=== PATIENT | female | born 1945 | race Hispanic/Latino ===

== ENCOUNTER → 2018-01-14 | Outpatient (CLI) | payer MEDICARE, SELFPAY ==
[~2018-01-14] MED LIST: BAYER ASPIRIN PO; CETI10TA57 PO; HYDR25TA PO; METO-391 PO; MONT10TA24 PO; NAPR-1023 PO; PANT40TA25 PO; ROSU20TA PO; SULF1TAB42 PO; VITAMIN D2 PO
== END | disposition home or self-care (01) ==
LOC: RAH 13:55
PROVIDERS: ATTEND Internal Medicine Cardiovascular Disease
DX: Z13.6 Encounter for screening for cardiovascular disorders (principal)
CPT/HCPCS: 75571

== ENCOUNTER → 2018-01-17 | Outpatient (CLI) | payer MEDICARE | END | disposition home or self-care (01) | LOC: SHCH 10:40 | PROVIDERS: ATTEND Internal Medicine Cardiovascular Disease | DX: I11.0 Hypertensive heart disease with heart failure (principal); I50.9 Heart failure, unspecified; K21.9 Gastro-esophageal reflux disease without esophagitis; E78.5 Hyperlipidemia, unspecified; Z95.0 Presence of cardiac pacemaker | CPT/HCPCS: 93306 ==

== ENCOUNTER 2018-02-16 05:35 | Day surgery (SDC) | payer MEDICARE ==
[2018-02-14 10:42] VITALS: BP 128/69
[2018-02-14 10:56] LABS: BASOPHILS % (AUTO) 0.6 % (0.0-5.0); EOSINOPHILS % (AUTO) 0.9 % (0.0-8.0); HEMATOCRIT 43.4 % (36-48); LYMPHOCYTES % (AUTO) 31.5 % (21.0-51.0); MEAN CORPUSCULAR HEMOGLOBIN 29.5 pg (27.0-33.0); MEAN CORPUSCULAR HGB CONC 33.6 g/dL (32.0-36.0); MEAN CORPUSCULAR VOLUME 87.7 fL (79-99); MONOCYTES % (AUTO) 6.7 % (3.0-13.0); NEUTROPHILS % (AUTO) 60.3 % (40.0-77.0); NUCLEATED RED BLOOD CELLS 0.1 % (0.0-0.19); PLATELET COUNT (AUTO) 245 K/uL (130-400); RED BLOOD CELL COUNT(AUTO) 4.95 MIL/uL (4.00-5.50); RED CELL DISTRIBUTION WIDTH 14.1 % (11.0-15.5); WHITE BLOOD COUNT (AUTO) 8.1 K/uL (4.8-10.8)
[2018-02-14 11:06] LABS: BILIRUBIN,URINE Negative (NEGATIVE); COLOR,URINE Yellow (YELLOW); GLUCOSE, URINE (UA) Negative (NEGATIVE); KETONES,URINE Negative (NEGATIVE); LEUKOCYTE ESTERASE ,URINE Large (NEGATIVE); NITRATE,URINE Negative (NEGATIVE); OCCULT BLOOD,URINE Negative (NEGATIVE); PROTEIN,URINE Negative (NEGATIVE); UROBILINOGEN,URINE 0.2 mg/dL (0.2-1.0)
[2018-02-14 11:09] LABS: APPEARANCE,URINE CLEAR (CLEAR)
[2018-02-14 11:12] LABS: CREATININE 0.7 mg/dL (0.5-1.5); POTASSIUM 3.7 mmol/L (3.5-5.1)
[2018-02-14 11:13] LABS: BACTERIA,URINE Rare /HPF (None Seen); RBC,URINE 0-1 /HPF (0-1); SQUAMOUS EPITHELIAL CELL,UR Few /HPF (0-2)
[2018-02-14 11:32] LABS: INR 0.95 (0.85-1.15); PARTIAL THROMBOPLASTIN TIME 24.8 SEC (26.3-35.5)
[2018-02-16] VITALS (9 sets, daily range): BP systolic 109–136; BP diastolic 49–78
[~2018-02-16] VITALS: Ht 160 cm; Wt 91.6 kg
[~2018-02-16 05:35] MED LIST changes: +ACETAMINOPHEN 325 MG TAB PO PRN; -CETI10TA57 PO; +SODIUM CHLORIDE 0.9% 500ML 500 ML IV SCH; -SULF1TAB42 PO
[2018-02-16] MEDS ORDERED: SODIUM CHLORIDE 0.9% 1000ML 1,000 ML IV ONE (06:15)
[2018-02-16] MEDS ORDERED: SULF1TAB42 PO (07:03)
[2018-02-16] MEDS ORDERED: IOPAMIDOL-370 100 ML VIAL IV ONE ×2 (09:59)
[2018-02-16] MEDS ORDERED: ISOVUE-370 50ML VIAL IV ONE (09:59)
[2018-02-16] MEDS ORDERED: HEPARIN SODIUM 1000UNIT/ML 10ML VIAL ONE (09:59)
[2018-02-16] MEDS ORDERED: MEPERIDINE-PF 25 MG/ML SYG ONE ×2 (10:00→10:19)
[2018-02-16] MEDS ORDERED: NITROGLYCERIN 5 MG/ML 10 ML VIAL IV ONE (10:00)
[2018-02-16] MEDS ORDERED: MIDAZOLAM HCL 1 MG/ML 2ML VIAL ONE ×2 (10:00→10:19)
[2018-02-16] MEDS ORDERED: LIDOCAINE HCL-MPF 2% 5ML VIAL ONE (10:01)
[2018-02-16] MEDS ORDERED: SODIUM BICARB 50MEQ 50ML VIAL ONE (10:01)
[2018-02-16] MEDS ORDERED: SODIUM CHLORIDE 0.9% 1000ML 1,000 ML IV SCH (10:46)
[2018-02-16] MEDS ORDERED: ACETAMINOPHEN-CODEINE 300/30MG TAB PO PRN ×2 (11:00)
== END 2018-02-16 14:55 | disposition home or self-care (01) ==
LOC: DAH 05:35
PROVIDERS: ATTEND Internal Medicine Cardiovascular Disease
DX: R07.89 Other chest pain (principal); I10 Essential (primary) hypertension; E78.4 Other hyperlipidemia; K21.9 Gastro-esophageal reflux disease without esophagitis; Z95.0 Presence of cardiac pacemaker; Z90.49 Acquired absence of other specified parts of digestive tract; Z90.710 Acquired absence of both cervix and uterus; Z98.890 Other specified postprocedural states
CPT/HCPCS: 36415; 71045; 80048; 81001; 85025; 85610; 85730; 93005; 93458; A4606; C1760; C1894; J1644; J2175 ×2; J2250 ×2; J3490 ×3; J7030; Q9967 ×3; 99152; 99153

== ENCOUNTER 2018-12-06 14:32 | Emergency (ER) | payer MEDICARE ==
[~2018-12-06 14:32] MED LIST changes: -ACETAMINOPHEN 325 MG TAB PO PRN; -SODIUM CHLORIDE 0.9% 500ML 500 ML IV SCH; +SULF1TAB42 PO
[2018-12-06 15:11] LABS: BASOPHILS % (AUTO) 0.8 % (0.0-5.0); EOSINOPHILS % (AUTO) 0.6 % (0.0-8.0); HEMATOCRIT 40.1 % (36-48); LYMPHOCYTES % (AUTO) 24.6 % (21.0-51.0); MEAN CORPUSCULAR HEMOGLOBIN 29.2 pg (27.0-33.0); MEAN CORPUSCULAR HGB CONC 32.9 g/dL (32.0-36.0); MEAN CORPUSCULAR VOLUME 88.8 fL (79-99); MONOCYTES % (AUTO) 7.4 % (3.0-13.0); NEUTROPHILS % (AUTO) 66.6 % (40.0-77.0); NUCLEATED RED BLOOD CELLS 0.1 % (0.0-0.19); PLATELET COUNT (AUTO) 232 K/uL (130-400); RED BLOOD CELL COUNT(AUTO) 4.52 MIL/uL (4.00-5.50); RED CELL DISTRIBUTION WIDTH 14.3 % (11.0-15.5); WHITE BLOOD COUNT (AUTO) 10.3 K/uL (4.8-10.8)
[2018-12-06 15:30] LABS: CREATININE 0.7 mg/dL (0.5-1.5); POTASSIUM 3.3 mmol/L (3.5-5.1)
[2018-12-06 15:32] LABS: INR 0.96 (0.85-1.15); PARTIAL THROMBOPLASTIN TIME 23.5 SEC (26.3-35.5); PROTHROMBIN TIME 10.1 SEC (9.6-11.6)
[2018-12-06 15:35] LABS: ALBUMIN 3.5 g/dL (3.5-5.0); BILIRUBIN,TOTAL 0.7 mg/dL (0.2-1.0); TOTAL PROTEIN, SERUM 7.2 g/dL (6.0-8.3)
[2018-12-06] MEDS ORDERED: POTASSIUM BICARB/CIT AC 25 MEQ TABLET.EFF ONE (15:46)
[2018-12-06] MEDS ORDERED: OCTYL 2-CYANOACRYLATE 1 EACH TP ONE (15:50)
[2018-12-06] MEDS ORDERED: ACETAMINOPHEN EXTRA STRENGTH 500 MG TABLET ONE (16:03)
[2018-12-06 16:37] LABS: APPEARANCE,URINE Clear (CLEAR); BILIRUBIN,URINE Negative (NEGATIVE); COLOR,URINE Yellow (YELLOW); GLUCOSE, URINE (UA) Negative (NEGATIVE); KETONES,URINE Negative (NEGATIVE); LEUKOCYTE ESTERASE ,URINE Large (NEGATIVE); NITRATE,URINE Negative (NEGATIVE); OCCULT BLOOD,URINE Negative (NEGATIVE); PROTEIN,URINE Negative (NEGATIVE); UROBILINOGEN,URINE 0.2 mg/dL (0.2-1.0)
[2018-12-06 16:45] LABS: BACTERIA,URINE Few /HPF (None Seen); RBC,URINE None Seen /HPF (0-1)
== END 2018-12-06 17:13 | disposition home or self-care (01) ==
LOC: EDH 14:32
DX: S01.21XA Laceration without foreign body of nose, initial encounter (principal); S66.911A Strain of unspecified muscle, fascia and tendon at wrist and hand level, right hand, initial encounter; N39.0 Urinary tract infection, site not specified; R79.1 Abnormal coagulation profile; W18.09XA Striking against other object with subsequent fall, initial encounter; Y93.89 Activity, other specified; Y92.89 Other specified places as the place of occurrence of the external cause; Y99.8 Other external cause status
CPT/HCPCS: 12011; 36415; 70450; 70486; 71045; 72125; 80053; 81001; 82550; 84484; 85025; 85610; 85730; 93005

== ENCOUNTER 2019-02-04 21:57 | Observation (INO) | payer MEDICARE ==
[~2019-02-04] VITALS: Ht 160 cm; Wt 90.7 kg
[2019-02-04 23:37] LABS: BASOPHILS % (AUTO) 0.6 % (0.0-5.0); EOSINOPHILS % (AUTO) 0.8 % (0.0-8.0); HEMATOCRIT 41.2 % (36-48); LYMPHOCYTES % (AUTO) 32.9 % (21.0-51.0); MEAN CORPUSCULAR HEMOGLOBIN 29.8 pg (27.0-33.0); MEAN CORPUSCULAR HGB CONC 33.3 g/dL (32.0-36.0); MEAN CORPUSCULAR VOLUME 89.5 fL (79-99); MONOCYTES % (AUTO) 6.7 % (3.0-13.0); PLATELET COUNT (AUTO) 202 K/uL (130-400); RED BLOOD CELL COUNT(AUTO) 4.61 MIL/uL (4.00-5.50); RED CELL DISTRIBUTION WIDTH 14.3 % (11.0-15.5); WHITE BLOOD COUNT (AUTO) 11.3 K/uL (4.8-10.8)
[2019-02-04 23:47] LABS: CREATININE 0.6 mg/dL (0.5-1.5); POTASSIUM 4.3 mmol/L (3.5-5.1)
[2019-02-04 23:51] LABS: ALBUMIN 3.8 g/dL (3.5-5.0); BILIRUBIN,TOTAL 1.2 mg/dL (0.2-1.0); TOTAL PROTEIN, SERUM 6.9 g/dL (6.0-8.3)
[2019-02-04 23:55] LABS: INR 1.05 (0.85-1.15); PARTIAL THROMBOPLASTIN TIME 19.1 SEC (26.3-35.5)
[2019-02-05 00:08] LABS: B-TYPE NATRIURETIC PEPTIDE 30 pg/mL (0-100)
[2019-02-05 01:10] LABS: APPEARANCE,URINE Clear (CLEAR); BILIRUBIN,URINE Negative (NEGATIVE); COLOR,URINE Yellow (YELLOW); GLUCOSE, URINE (UA) Negative (NEGATIVE); KETONES,URINE Negative (NEGATIVE); LEUKOCYTE ESTERASE ,URINE Trace (NEGATIVE); NITRATE,URINE Negative (NEGATIVE); OCCULT BLOOD,URINE Negative (NEGATIVE); PROTEIN,URINE Negative (NEGATIVE); UROBILINOGEN,URINE 0.2 mg/dL (0.2-1.0)
[2019-02-05 01:29] LABS: BACTERIA,URINE Rare /HPF (None Seen); RBC,URINE 0-1 /HPF (0-1); SQUAMOUS EPITHELIAL CELL,UR 0-2 /HPF (0-2); WBC,URINE 0-1 /HPF (0-1)
[2019-02-05] MEDS ORDERED: LACTULOSE 20 GM/30 ML UDCUP ONE ×3 (01:52→21:03)
[2019-02-05] MEDS ORDERED: CEFTRIAXONE SODIUM 1 GM ONE (01:52)
[2019-02-05] MEDS ORDERED: MORPHINE SULFATE 2 MG/ML 1ML SYG IV PRN (02:30)
[2019-02-05] MEDS ORDERED: CEFTRIAXONE SODIUM 1 GM IV SCH (02:30)
[2019-02-05 05:51] LABS: CREATINE KINASE, TOTAL 18 U/L (21-232); MYOGLOBIN 26 ng/mL (10-92); TROPONIN I < 0.04 ng/mL (0.00-0.06)
[2019-02-05] MEDS ORDERED: ATORVASTATIN CALCIUM 20 MG TABLET PO SCH ×2 (09:00→21:00)
[2019-02-05] MEDS ORDERED: METOPROLOL TARTRATE 25 MG TAB PO SCH ×2 (09:00→11:15)
[2019-02-05] MEDS ORDERED: PANTOPRAZOLE SODIUM 40 MG TABLET.DR PO SCH (09:00)
[2019-02-05] MEDS ORDERED: LACTULOSE 20 GM/30 ML UDCUP PO SCH (09:00)
[2019-02-05] MEDS ORDERED: ENOXAPARIN SODIUM 40 MG/0.4 ML SYRINGE SQ SCH (09:00)
[2019-02-05] MEDS ORDERED: ASPIRIN 81MG TAB.CHEW PO SCH (09:00)
[2019-02-05] MEDS ORDERED: ENOXAPARIN SODIUM 40 MG/0.4 ML SYRINGE SQ ONE (09:14)
[2019-02-05] MEDS ORDERED: ATORVASTATIN CALCIUM 20 MG TABLET ONE ×2 (09:14→21:04)
[2019-02-05] MEDS ORDERED: ASPIRIN 81MG TAB.CHEW ONE (09:14)
[2019-02-05] MEDS ORDERED: PANTOPRAZOLE SODIUM 40 MG TABLET.DR PO ONE (09:15)
[2019-02-05] MEDS ORDERED: METOPROLOL TARTRATE 25 MG TAB ONE ×3 (09:15→21:04)
[2019-02-05] MEDS ORDERED: NAPROXEN 500 MG TABLET PO PRN (11:15)
[2019-02-05] MEDS ORDERED: MONTELUKAST SODIUM 10 MG TAB ONE (11:51)
[2019-02-05] MEDS ORDERED: HYDROCHLOROTHIAZIDE 25 MG TABLET ONE (11:52)
[2019-02-05 13:03] LABS: CREATINE KINASE, TOTAL 52 U/L (21-232); MYOGLOBIN 39 ng/mL (10-92); TROPONIN I < 0.04 ng/mL (0.00-0.06)
[2019-02-05] MEDS ORDERED: IOHEXOL-350 75 ML VIAL IV ONE (15:18)
[2019-02-05] MEDS ORDERED: TEMAZEPAM 15 MG CAPSULE PO ONE (20:45)
[2019-02-05] MEDS ORDERED: TEMAZEPAM 30 MG CAP ONE (21:05)
[2019-02-06 04:49] LABS: BASOPHILS % (AUTO) 1.2 % (0.0-5.0); EOSINOPHILS % (AUTO) 1.3 % (0.0-8.0); HEMATOCRIT 36.4 % (36-48); LYMPHOCYTES % (AUTO) 33.1 % (21.0-51.0); MEAN CORPUSCULAR HEMOGLOBIN 30.7 pg (27.0-33.0); MEAN CORPUSCULAR HGB CONC 34.4 g/dL (32.0-36.0); MEAN CORPUSCULAR VOLUME 89.4 fL (79-99); MONOCYTES % (AUTO) 8.1 % (3.0-13.0); NEUTROPHILS % (AUTO) 56.3 % (40.0-77.0); PLATELET COUNT (AUTO) 210 K/uL (130-400); RED BLOOD CELL COUNT(AUTO) 4.07 MIL/uL (4.00-5.50); RED CELL DISTRIBUTION WIDTH 14.4 % (11.0-15.5); WHITE BLOOD COUNT (AUTO) 8.3 K/uL (4.8-10.8)
[2019-02-06 05:14] LABS: CREATININE 0.6 mg/dL (0.5-1.5); POTASSIUM 3.3 mmol/L (3.5-5.1)
[2019-02-06 07:40] VITALS: BP 131/91
--- NOTE | 2019-02-06 08:30 | NUR ---
NOTE ADMITTED FROM ER AT THIS TIME. INITIAL COMPLAINS WHEN SHE ARRIVED THERE WERE CHEST PAIN. YESTERDAY ALL CARDIAC ENZYMES WERE NEGATIVE AND FAMILY REPORTED THAT SHE DEVELOPED SLURRED SPEECH ONE TIME WHEN SHE HAD CHEST PAIN. CT ANGIO HEAD WAS DONE ADN RESULTS WERE NORMAL. RESULTS WERE AVAILABLE ABOUT 1500 YESTERDAY BUT M.D. WAS NOT MADE AWARE. SHE IS HERE STABLE, NO DISTRESS OR SOB. NO CHEST PAIN NO SLURRED SPEECH. SHE IS VERY DEMANDING AND CURSING AT STAFF AND SMILING AT THE SAME TIME WANTS TO SHOWER, WANTS TO EAT AND WANTS TO LEAVE. NURSE PRACTICIONER OLIVIA WAS MADE AWARE OF ADMISSION IMMEDIATELY AND ABOUT THE PATIENT'S REQUEST TO LEAVE. SHE WILL BE DISCHARGED LATER THIS AM.
[2019-02-06] MEDS ORDERED: BAYER ASPIRIN 81 MG PO SCH (09:00)
[2019-02-06] MEDS ORDERED: HYDROCHLOROTHIAZIDE 25 MG TABLET PO SCH (09:00)
[2019-02-06] MEDS ORDERED: MONTELUKAST SODIUM 10 MG TAB PO SCH (09:00)
--- NOTE | 2019-02-06 09:00 | NUR ---
CM NOTES PT DC IN OBS STATS- SEEN IN THE [facility] AAOX3, AMBULATORY- NO CONCERNS VOICED TO PRIMARY NURSE BY PATIENT OR TO CM BY PRIMARY RN Addendum: 02/06/19 at 1258 by WILTON BENNETT RN CM Amended: Links added.
--- NOTE | 2019-02-06 10:30 | NUR ---
NOTE DISCHARGE ISNTRUCTIONS GIVEN AT THIS TIME. REFER TO DC SUMMARY FRO DETAILS. STABLE UPON DISCHARGE WITH VIA WHEELCHAIR.
[2019-02-12] MEDS ORDERED: VIT D2 1.25 MG PO SCH (09:00)
== END 2019-02-06 10:46 | disposition home or self-care (01) ==
LOC: EDH 21:57 → EDHIP 02-05 02:21 → 4BH 02-06 08:03
PROVIDERS: ADMIT Hospitalist; ATTEND Hospitalist
DX: R07.89 Other chest pain (principal); I11.0 Hypertensive heart disease with heart failure; I50.9 Heart failure, unspecified; E78.5 Hyperlipidemia, unspecified; E72.20 Disorder of urea cycle metabolism, unspecified; K21.9 Gastro-esophageal reflux disease without esophagitis; Z95.0 Presence of cardiac pacemaker; Z90.49 Acquired absence of other specified parts of digestive tract; Z82.0 Family history of epilepsy and other diseases of the nervous system; Z82.3 Family history of stroke; Z82.49 Family history of ischemic heart disease and other diseases of the circulatory system; Z82.5 Family history of asthma and other chronic lower respiratory diseases; Z83.3 Family history of diabetes mellitus; Z79.899 Other long term (current) drug therapy
CPT/HCPCS: 36415 ×3; 70450; 70496; 70498; 71045; 80048; 80053; 80061; 81001; 82140 ×2; 82150; 82550 ×3; 82948; 83690; 83874 ×2; 83880; 84484 ×4; 85025 ×2; 85610; 85730; 87088; 93005 ×3; 99291; G0378 ×32; J0696; J1650; Q9967

== ENCOUNTER → 2019-02-20 | Outpatient (CLI) | payer MEDICARE ==
[~2019-02-20] MED LIST changes: -BAYER ASPIRIN PO; -NAPR-1023 PO; -SULF1TAB42 PO
== END | disposition home or self-care (01) ==
LOC: RAH 02-15 10:34
PROVIDERS: ATTEND Nurse Practitioner Family
DX: Z12.31 Encounter for screening mammogram for malignant neoplasm of breast (principal)
CPT/HCPCS: 77067

== ENCOUNTER → 2019-05-31 | Outpatient (CLI) | payer MEDICARE ==
[~2019-05-31] MED LIST changes: -ROSU20TA PO; +ROSU20TA23 PO
== END | disposition home or self-care (01) ==
LOC: RAH 08:12
PROVIDERS: ATTEND Nurse Practitioner Family
DX: R10.9 Unspecified abdominal pain (principal); Z90.49 Acquired absence of other specified parts of digestive tract
CPT/HCPCS: 76700

== ENCOUNTER 2019-09-07 09:52 | Emergency (ER) | payer MEDICARE ==
[2019-09-07 10:10] LABS: BASOPHILS % (AUTO) 0.9 % (0.0-5.0); HEMATOCRIT 44.3 % (36-48); LYMPHOCYTES % (AUTO) 29.5 % (21.0-51.0); MEAN CORPUSCULAR HEMOGLOBIN 30.5 pg (27.0-33.0); MEAN CORPUSCULAR HGB CONC 34.4 g/dL (32.0-36.0); MEAN CORPUSCULAR VOLUME 88.7 fL (79-99); MONOCYTES % (AUTO) 7.9 % (3.0-13.0); NEUTROPHILS % (AUTO) 59.7 % (40.0-77.0); PLATELET COUNT (AUTO) 221 K/uL (130-400); RED BLOOD CELL COUNT(AUTO) 4.99 MIL/uL (4.00-5.50); RED CELL DISTRIBUTION WIDTH 13.6 % (11.0-15.5); WHITE BLOOD COUNT (AUTO) 8.1 K/uL (4.8-10.8)
[2019-09-07 10:21] LABS: CREATININE 0.6 mg/dL (0.5-1.5); POTASSIUM 3.5 mmol/L (3.5-5.1)
[2019-09-07 10:23] LABS: INR 0.98 (0.85-1.15); PARTIAL THROMBOPLASTIN TIME 23.8 SEC (26.3-35.5); PROTHROMBIN TIME 10.3 SEC (9.6-11.6)
[2019-09-07 10:25] LABS: BILIRUBIN,TOTAL 1.6 mg/dL (0.2-1.0); TOTAL PROTEIN, SERUM 7.7 g/dL (6.0-8.3)
[2019-09-07 10:40] LABS: B-TYPE NATRIURETIC PEPTIDE 63 pg/mL (0-100)
[2019-09-07] MEDS ORDERED: ASPIRIN 81MG TAB.CHEW ONE (11:27)
== END 2019-09-07 15:53 | disposition home or self-care (01) ==
LOC: EDH 09:52
DX: R07.89 Other chest pain (principal); R06.00 Dyspnea, unspecified; I10 Essential (primary) hypertension; Z96.89 Presence of other specified functional implants
CPT/HCPCS: 36415; 71045; 80053; 82140; 82550; 83690; 83880; 84484; 85025; 85610; 85730; 93005

== ENCOUNTER → 2020-01-18 | Outpatient (CLI) | payer MEDICARE ==
[~2020-01-18] MED LIST changes: -MONT10TA24 PO; +MONT10TA26 PO
[2020-01-18 10:03] LABS: BASOPHILS % (AUTO) 0.3 % (0.0-5.0); EOSINOPHILS % (AUTO) 0.8 % (0.0-8.0); HEMATOCRIT 42.8 % (36-48); LYMPHOCYTES % (AUTO) 20.6 % (21.0-51.0); MEAN CORPUSCULAR HEMOGLOBIN 28.8 pg (27.0-33.0); MEAN CORPUSCULAR HGB CONC 32.2 g/dL (32.0-36.0); MEAN CORPUSCULAR VOLUME 89.2 fL (79-99); NEUTROPHILS % (AUTO) 71.8 % (40.0-77.0); PLATELET COUNT (AUTO) 237 K/uL (130-400); WHITE BLOOD COUNT (AUTO) 10.7 K/uL (4.8-10.8)
[2020-01-18 10:10] LABS: HEMOGLOBIN A1C 5.7 % (4.0-6.0)
[2020-01-18 10:25] LABS: ALBUMIN 3.8 g/dL (3.5-5.0); BILIRUBIN,TOTAL 1.6 mg/dL (0.2-1.0); CREATININE 0.7 mg/dL (0.5-1.5); POTASSIUM 3.1 mmol/L (3.5-5.1); T4 (THYROXINE) 8.3 ug/dL (4.7-13.3); THYROID STIMULATING HORMONE 1.77 uIU/mL (0.36-3.74)
== END | disposition home or self-care (01) ==
LOC: LAB 09:07
PROVIDERS: ATTEND Internal Medicine Cardiovascular Disease
DX: R94.31 Abnormal electrocardiogram [ECG] [EKG] (principal); E78.5 Hyperlipidemia, unspecified
CPT/HCPCS: 36415; 80053; 83036; 84436; 84443; 84479; 85025

== ENCOUNTER → 2020-01-22 | Outpatient (CLI) | payer MEDICARE | END | disposition home or self-care (01) | LOC: RAH 08:12 | PROVIDERS: ATTEND Internal Medicine Cardiovascular Disease | DX: I10 Essential (primary) hypertension (principal); Z95.0 Presence of cardiac pacemaker | CPT/HCPCS: 93306 ==

== ENCOUNTER 2020-05-07 08:08 | Observation (INO) | payer OTHER, MEDICARE ==
[2020-05-06 12:12] LABS: BASOPHILS % (AUTO) 0.3 % (0.0-5.0); EOSINOPHILS % (AUTO) 0.8 % (0.0-8.0); HEMATOCRIT 42.2 % (36-48); MEAN CORPUSCULAR HGB CONC 33.2 g/dL (32.0-36.0); MEAN CORPUSCULAR VOLUME 90.4 fL (79-99); MONOCYTES % (AUTO) 6.6 % (3.0-13.0); NEUTROPHILS % (AUTO) 61.1 % (40.0-77.0); PLATELET COUNT (AUTO) 242 K/uL (130-400); RED BLOOD CELL COUNT(AUTO) 4.67 MIL/uL (4.00-5.50); RED CELL DISTRIBUTION WIDTH 13.1 % (11.0-15.5); WHITE BLOOD COUNT (AUTO) 9.4 K/uL (4.8-10.8)
[2020-05-06 12:23] LABS: CREATININE 0.6 mg/dL (0.5-1.5); POTASSIUM 3.9 mmol/L (3.5-5.1)
[2020-05-06 12:26] LABS: INR 0.99 (0.85-1.15); PARTIAL THROMBOPLASTIN TIME 25.7 SEC (26.3-35.5); PROTHROMBIN TIME 10.7 SEC (9.6-11.6)
[2020-05-06 14:02] VITALS: BP 135/68
[~2020-05-07] VITALS: Ht 160 cm; Wt 83.9 kg
[2020-05-07] VITALS (7 sets, daily range): BP systolic 108–132; BP diastolic 67–80
[~2020-05-07 08:08] MED LIST changes: +APIX5TAB PO; +LISI2.5T2 PO; -PANT40TA25 PO; +PANT40TA54 PO
[2020-05-07] MEDS ORDERED: LORA-705 PO (09:49)
[2020-05-07] MEDS ORDERED: OLOP2.5D12 OP (09:51)
[2020-05-07] MEDS ORDERED: SODIUM CHLORIDE 0.9% 1000ML 1,000 ML IV ONE (10:34)
[2020-05-07] MEDS ORDERED: ACETAMINOPHEN EXTRA STRENGTH 500 MG TABLET ONE (12:30)
[2020-05-07] MEDS ORDERED: ACETAMINOPHEN 325 MG TAB PO ONE (13:30)
[2020-05-07] MEDS ORDERED: IODIXANOL 320 MG/ML 100 ML VIAL ONE (14:00)
[2020-05-07] MEDS ORDERED: MEPERIDINE-PF 25 MG/ML SYG ONE ×5 (14:00→16:31)
[2020-05-07] MEDS ORDERED: LIDOCAINE HCL 1% MDV 50ML VIAL ONE (14:00)
[2020-05-07] MEDS ORDERED: MIDAZOLAM HCL 1 MG/ML 2ML VIAL ONE ×5 (14:00→16:30)
[2020-05-07] MEDS ORDERED: CEFAZOLIN SODIUM 1 GM VIAL ONE (14:00)
[2020-05-07] MEDS ORDERED: BUPIVACAINE/PF 0.25% 30ML VIAL IJ ONE (14:00)
[2020-05-07] MEDS ORDERED: ACETAMINOPHEN-CODEINE 300/30MG TAB PO PRN (18:00)
--- NOTE | 2020-05-07 18:35 | NUR ---
PT ARRIVED FROM LAW TUTOR REPORT GIVEN BY CARISSA LEON. PT ARRIVED, VS STABLE. AAOX3, DAUGHTER AT BEDSIDE. LEFT SIDED GAUZE AND PRESSURE DRESSING. DRESSING LIFTED, NO HEMATOMA FELT OR NOTICED. PT VERBALIZED PAIN OF 10/10. MOANING AND IRRITABLE. PT ARM IN SLING. EDUCATED ON BED REST X 3 HOURS, NOT LIFTING HAND ABOVE HEART FOR 4-6 WEEKS. PT AND DAUGHTER VERBALIZED UNDERSTANDING
[2020-05-07] MEDS ORDERED: NON-FORMULARY MEDICATION 1 EACH (Lisinopril 2.5 MG) PO SCH (21:00)
[2020-05-07] MEDS ORDERED: LISINOPRIL 2.5 MG TABLET PO SCH (21:00)
[2020-05-07] MEDS: CEFAZOLIN SODIUM 1 GM VIAL IVP SCH (22:32)
[2020-05-08 00:20] VITALS: BP 99/48
[2020-05-08 01:20] VITALS: BP 117/58
[2020-05-08 04:25] VITALS: BP 124/79
[2020-05-08 04:54] LABS: BASOPHILS % (AUTO) 0.2 % (0.0-5.0); EOSINOPHILS % (AUTO) 1.4 % (0.0-8.0); HEMATOCRIT 38.5 % (36-48); LYMPHOCYTES % (AUTO) 11.3 % (21.0-51.0); MEAN CORPUSCULAR HEMOGLOBIN 29.7 pg (27.0-33.0); MEAN CORPUSCULAR HGB CONC 33.8 g/dL (32.0-36.0); MEAN CORPUSCULAR VOLUME 88.1 fL (79-99); MONOCYTES % (AUTO) 6.7 % (3.0-13.0); NEUTROPHILS % (AUTO) 79.9 % (40.0-77.0); PLATELET COUNT (AUTO) 191 K/uL (130-400); RED BLOOD CELL COUNT(AUTO) 4.37 MIL/uL (4.00-5.50); RED CELL DISTRIBUTION WIDTH 13.2 % (11.0-15.5); WHITE BLOOD COUNT (AUTO) 12.5 K/uL (4.8-10.8)
[2020-05-08] MEDS: CEFAZOLIN SODIUM 1 GM VIAL IVP SCH (05:07)
[2020-05-08 05:09] LABS: CREATININE 0.6 mg/dL (0.5-1.5); POTASSIUM 3.4 mmol/L (3.5-5.1)
--- NOTE | 2020-05-08 06:35 | NUR ---
To X-ray Lab via wheelchair.
--- NOTE | 2020-05-08 06:45 | NUR ---
Pt back to floor via W/C from X-ray lab.
[2020-05-08 08:00] VITALS: BP 120/66
--- NOTE | 2020-05-08 08:00 | NUR ---
AM SHIFT ASSESSMENT.
[2020-05-08] MEDS ORDERED: NON-FORMULARY MEDICATION 1 EACH (Loratadine 10 MG) PO SCH (09:00)
[2020-05-08] MEDS ORDERED: HYDROCHLOROTHIAZIDE 25 MG TABLET PO SCH (09:00)
[2020-05-08] MEDS ORDERED: LORATADINE 10 MG TABLET PO SCH (09:00)
[2020-05-08] MEDS ORDERED: PANTOPRAZOLE SODIUM 40 MG TABLET.DR PO SCH (09:00)
[2020-05-08] MEDS ORDERED: METOPROLOL SUCCINATE 50 MG TAB.SR.24H PO SCH (09:00)
[2020-05-08] MEDS ORDERED: ONDANSETRON HCL 4 MG/2 ML VIAL IVP PRN (11:00)
[2020-05-08 12:00] VITALS: BP 130/42
--- NOTE | 2020-05-08 15:16 | NUR ---
[id number] patient's daughter signed [place] Letter, I faxed [place] Letter to [phone] and placed in chart under consent tab.
[2020-05-08 16:59] VITALS: BP 103/64
== END 2020-05-08 17:24 | disposition home or self-care (01) ==
LOC: DAH 08:08 → 4CH 17:57
PROVIDERS: ADMIT Internal Medicine; ATTEND Internal Medicine
DX: I42.9 Cardiomyopathy, unspecified (principal); I48.0 Paroxysmal atrial fibrillation; I44.7 Left bundle-branch block, unspecified; I49.5 Sick sinus syndrome; I51.7 Cardiomegaly; G47.33 Obstructive sleep apnea (adult) (pediatric); E78.5 Hyperlipidemia, unspecified; I10 Essential (primary) hypertension; R53.83 Other fatigue; Z90.711 Acquired absence of uterus with remaining cervical stump; Z90.49 Acquired absence of other specified parts of digestive tract; Z95.0 Presence of cardiac pacemaker
CPT/HCPCS: 33225; 33229; 36415 ×2; 71046; 80048 ×2; 85025 ×2; 85610; 85730; 93005; 96374; 96375; 96376; A4215; A4216; A4221; A4222; A4223 ×3; A4606; A4663; C1769 ×3; C1887; C1894; C1900; C2621; G0378 ×8; J0690 ×3; J2175 ×5; J2250 ×5; J2405; J3490 ×2; J7030; Q9967; 99156; 99157

== ENCOUNTER → 2021-03-03 | Outpatient (CLI) | payer OTHER, MEDICARE ==
[~2021-03-03] MED LIST changes: +LORA-699 PO; -MONT10TA26 PO; +OLOP2.5D12 OP
== END | disposition home or self-care (01) ==
LOC: SHCH 10:38
PROVIDERS: ATTEND Internal Medicine Cardiovascular Disease
DX: I49.5 Sick sinus syndrome (principal)
CPT/HCPCS: 93306; 93356

== ENCOUNTER → 2022-08-31 | Outpatient (CLI) | payer OTHER, MEDICARE ==
[~2022-08-31] MED LIST changes: +LISI2.5T13 PO; -LISI2.5T2 PO
== END | disposition home or self-care (01) ==
LOC: SHCH 09:23
PROVIDERS: ATTEND Internal Medicine Cardiovascular Disease
DX: I35.8 Other nonrheumatic aortic valve disorders (principal); I44.7 Left bundle-branch block, unspecified; I11.9 Hypertensive heart disease without heart failure; Z95.0 Presence of cardiac pacemaker
CPT/HCPCS: 93306

== ENCOUNTER → 2022-11-09 | Outpatient (CLI) | payer OTHER, MEDICARE | END | disposition home or self-care (01) | LOC: SLP 20:00 | PROVIDERS: ATTEND Internal Medicine Cardiovascular Disease | DX: G47.33 Obstructive sleep apnea (adult) (pediatric) (principal) | CPT/HCPCS: 95810 ==

== ENCOUNTER → 2022-12-01 | Outpatient (CLI) | payer OTHER, MEDICARE | END | disposition home or self-care (01) | LOC: SLP 19:59 | PROVIDERS: ATTEND Internal Medicine Cardiovascular Disease | DX: G47.33 Obstructive sleep apnea (adult) (pediatric) (principal) | CPT/HCPCS: 95811 ==

== ENCOUNTER → 2024-05-17 | Outpatient (CLI) | payer OTHER, MEDICARE ==
[~2024-05-17] MED LIST changes: +IOHEXOL 350 MG/ML 100ML INFUS..BTL IV ONE; +METOPROLOL TARTRATE 1 MG/ML 5ML VIAL IV ONE
== END | disposition home or self-care (01) ==
LOC: RAH 07:39
PROVIDERS: ATTEND Internal Medicine Cardiovascular Disease
DX: I25.10 Atherosclerotic heart disease of native coronary artery without angina pectoris (principal); R07.9 Chest pain, unspecified; M47.815 Spondylosis without myelopathy or radiculopathy, thoracolumbar region; Z95.0 Presence of cardiac pacemaker
CPT/HCPCS: 75574; J3490; Q9967

== ENCOUNTER → 2024-05-30 | Outpatient (CLI) | payer OTHER, MEDICARE ==
[~2024-05-30] MED LIST changes: -IOHEXOL 350 MG/ML 100ML INFUS..BTL IV ONE; -METOPROLOL TARTRATE 1 MG/ML 5ML VIAL IV ONE
== END | disposition home or self-care (01) ==
LOC: SHCH 10:52
PROVIDERS: ATTEND Internal Medicine Cardiovascular Disease
DX: I08.0 Rheumatic disorders of both mitral and aortic valves (principal); I25.10 Atherosclerotic heart disease of native coronary artery without angina pectoris
CPT/HCPCS: 93306

== ENCOUNTER → 2024-06-20 | Outpatient (CLI) | payer OTHER, MEDICARE ==
[~2024-06-20] MED LIST changes: +IOHEXOL 350 MG/ML 100ML INFUS..BTL IV ONE
== END | disposition home or self-care (01) ==
LOC: RAH 07:44
PROVIDERS: ATTEND Obstetrics & Gynecology
DX: R19.09 Other intra-abdominal and pelvic swelling, mass and lump (principal); N93.9 Abnormal uterine and vaginal bleeding, unspecified; K57.30 Diverticulosis of large intestine without perforation or abscess without bleeding
CPT/HCPCS: 74176; Q9967; 74178